=== PATIENT | female | born 1990 | race Caucasian/White ===

== ENCOUNTER 2016-07-20 07:38 | Day surgery (SDC) | payer MEDICAID ==
[2016-07-20] VITALS (24 sets, daily range): BP systolic 89–117; BP diastolic 54–63; PULSE 82–104; RESP 13–20; Ht 157.5 cm; Wt 52.3 kg
[~2016-07-20] VITALS: Ht 157.5 cm; Wt 52.3 kg
[2016-07-20] MEDS ORDERED: LIDOCAINE 2%/EPI 30 ML INJ ONE (08:56)
[2016-07-20] MEDS ORDERED: HEPARIN 1000 UNITS/ML 10 ML INJ ONE (08:56)
[2016-07-20] MEDS ORDERED: SOD CHLORIDE 0.9% 500 ML ONE (08:56)
[2016-07-20] MEDS ORDERED: MIDAZOLAM 1 MG/ML 2 ML INJ ONE ×2 (09:01→10:18)
[2016-07-20] MEDS ORDERED: CEFAZOLIN 1 GM/50 ML (PMX) 50 ML IVPB ONE (09:01)
[2016-07-20] MEDS ORDERED: FENTAnyl 50 MCG/ML VIAL ONE ×2 (09:02→10:18)
[2016-07-20] MEDS ORDERED: SOD CHLORIDE 0.9% 1,000 ML IV SCH (09:30)
[2016-07-20] MEDS ORDERED: CEFAZOLIN 1 GM/50 ML (PMX) 50 ML IVPB SCH (10:30)
[2016-07-20] MEDS ORDERED: POLYMYXIN/BACITRACIN 1L IRRIG IRR SCH (10:30)
--- NOTE | 2016-07-20 13:34 | RADRPT ---
PROCEDURE: 1. Port-A-Cath insertion. 2. Ultrasound guidance for venous access. 3. Fluoroscopic guidance. CLINICAL INDICATION: Right breast cancer TECHNIQUE: After informed written consent, the left chest was prepped and draped in standard steri le fashion. 1% lidocaine was used for local anesthesia. Initially ultrasound was performed to dete rmine patency of the venous system.. Under ultrasound guidance, the left internal jugular vein was accessed with a micropuncture needle. The tract was serially dilated, and a 8-English vascular sheat h was left in place. Attention was now turned to the anterior chest wall. A 3 cm incision was made with a #15 blade. Blunt dissection was used to create a subcutaneous pocket. Pocket was irrigated with antibiotic wash solution. Next, a tunnel was created from the pocket to the venotomy site. T hrough this, the catheter was advanced, and through the peel-away sheath under fluoroscopic guidance until the distal tip was confirmed with the right atrial SVC junction. The proximal aspect the cat heter was secured to the port. Port was secured into the pocket with two 4-0 Vicryl sutures. The deep layer of the pocket was closed with two 4-0 Vicryl sutures. The incision was closed with a ru nning 4-0 Monocryl suture. The port was flushed with heparinized saline. The patient tolerated the procedure well. There were no complications. COMPARISON: None FINDINGS: 1. Initial ultrasound demonstrates patent left internal jugular vein. 2. Successful placement of left chest single lumen 8-English Port-A-Cath. The distal tip terminates at the right atrial SVC junction. The port aspirates and flushes freely. 3. There is no evidence of pneumothorax on the final chest x-ray IMPRESSION: Successful placement of chest wall Port-A-Cath as described RPTAT: HH .Nikolay Hawk MD, Date Time Electronically viewed and signed by .Nikolay Hawk MD, MD on 07/20/2016 13:34 .W/
--- NOTE | 2016-07-22 20:56 | RADRPT ---
PROCEDURE: Ultrasound guidance for venous access CLINICAL INDICATION: GUIDANCE FOR PORTACATH PLACEMENT TECHNIQUE: Axial avila scale images were obtained of the left internal jugular vein. The procedure was performed by Nikolay Hawk MD. COMPARISON: None FINDINGS: The left internal jugular vein is patent and normally compressible. IMPRESSION: Successful ultrasound guided access of left internal jugular vein for Port-A-Cath placement. The pro cedure was performed by Nikolay Hawk MD. RPTAT: QQ .Kilo Sagastume MD, MD Date Time Electronically viewed and signed by .Kilo Sagastume MD, on 07/22/2016 20:55 .R/
== END 2016-07-20 13:18 | disposition home or self-care (01) ==
LOC: SDS 07:38
PROVIDERS: ATTEND Internal Medicine Hematology & Oncology
DX: C50.911 Malignant neoplasm of unspecified site of right female breast (principal)
CPT/HCPCS: 36561; 76942; C1788; J0690; J1644; J2250; J3010; J7040; Z7610

== ENCOUNTER 2016-07-27 20:06 | Emergency (ER) | payer MEDICAID ==
[~2016-07-27] VITALS: Ht 162.6 cm; Wt 51.8 kg
[2016-07-27 20:08] VITALS: Ht 162.6 cm; Wt 51.8 kg
[2016-07-27] MEDS ORDERED: SOD CHLORIDE 0.9% 2,000 ML IV STA (21:01)
[2016-07-27 21:26] LABS: ADD UMIC YES; URINE BILIRUBIN (Dip) NEGATIVE (NEGATIVE); URINE BLOOD (Dip) TRACE (NEGATIVE); URINE COLOR LT. YELLOW (YELLOW); URINE GLUCOSE (Dip) NEGATIVE (NEGATIVE); URINE KETONES (Dip) NEGATIVE (NEGATIVE); URINE LEUKOCYTE ESTERASE (Dip) NEGATIVE (NEGATIVE); URINE NITRITE (Dip) NEGATIVE (NEGATIVE); URINE TOTAL PROTEIN (Dip) TRACE (NEGATIVE); URINE UROBILINOGEN (Dip) 0.2 E.U./dL (0.1-1.0)
[2016-07-27 21:35] LABS: ADD SCAN DIFF NO
[2016-07-27 21:41] LABS: ABNORMAL IP MESSAGE 1; HEMOGLOBIN 14.1 g/dl (12.0-16.0); MEAN CORPUSCULAR HGB CONC 35.3 g/dl (32.0-37.0); MEAN CORPUSCULAR VOLUME 87.9 fl (82.0-101.0); MEAN PLATELET VOLUME 10.6 fl (7.4-10.4); PLATELET COUNT 161 10^3/UL (140-415); RED BLOOD COUNT 4.55 10^6/ul (4.20-5.40); WHITE BLOOD COUNT 7.4 10^3/ul (4.8-10.8)
[2016-07-27 21:44] LABS: SQUAMOUS EPITHELIAL CELL,UR FEW; URINE RBCS 0-2 /HPF (0)
[2016-07-27 22:01] LABS: ALBUMIN 4.4 g/dl (3.3-4.9); ALBUMIN/GLOBULIN RATIO 1.69; BILIRUBIN,INDIRECT 0.5 mg/dl (0-1.1); BILIRUBIN,TOTAL 0.5 mg/dl (0.2-1.3); CALCIUM 8.4 mg/dl (8.4-10.2); CREATININE 0.57 mg/dl (0.44-1.00); POTASSIUM 3.4 mmol/L (3.5-5.1); URIC ACID 3.3 mg/dl (3.1-7.9)
[2016-07-27] MEDS ORDERED: POTASSIUM CHLORIDE (SR) 20 MEQ TAB PO STA (22:11)
[2016-07-27 22:47] VITALS: BP 101/63; PULSE 82; RESP 16; TEMP 97.6
--- NOTE | 2016-07-27 22:57 | ERD ---
ER Documentation Chief Complaint Date/Time DATE: 07/27/16 TIME: 20:50 Chief Complaint weakness , diarrhea , not eating good after chemo 6 days ago, CA breast HPI 26-year-old female with recently diagnosed right invasive, intraductal breast CA status post first round of chemotherapy 07/21/2016 presents to the ED complaining of a 3 day history of worsening, generalized weakness, nausea and nonbloody, nonmucoid diarrhea. There was no relief from Imodium and her doctor prescribed Lamictal and she has had no further diarrhea since this afternoon. Generalized weakness but no shortness of breath, chest pain or abdominal pain. No dysuria, polyuria or hematuria. No shortness of breath or cough. Denies leg pain or swelling. No fevers or chills. ROS All systems reviewed and are negative except as per history of present illness. Medications Home Meds No Active Prescriptions or Reported Meds Allergies Allergies: Coded Allergies: No Known Allergy (Unverified , 07/20/16) PMhx/Soc Reviewed in chart. As per HPI. History of Surgery: Yes (APENDECTOMY 2010) Anesthesia Reaction: No Hx Neurological Disorder: No Hx Respiratory Disorders: No Hx Cardiac Disorders: No Hx Psychiatric Problems: No Hx Miscellaneous Medical Probl: Yes (BREAST CA / PORTACATH PLACEMENT) Hx Alcohol Use: No Hx Substance Use: No Hx Tobacco Use: No Smoking Status: Never smoker Physical Exam Vitals Vital Signs Date Time Temp Pulse Resp B/P Pulse Ox O2 Delivery O2 Flow Rate FiO2 07/27/16 22:47 97.6 82 16 101/63 100 Room Air 07/27/16 20:49 96 16 110/73 100 Nasal Cannula 2.0 07/27/16 20:08 98.8 62 20 102/56 98 Physical Exam Const: Alert, ill-appearing, pale Head: Atraumatic Eyes: Normal Conjunctiva ENT: Normal External Ears, Nose and Mouth. Neck: Full range of motion. Nontender. Resp: Clear to auscultation bilaterally Cardio: Regular rate and rhythm, no murmurs. Abd: Soft, non tender, non distended. Normal bowel sounds Skin: No petechiae or rashes. Port-A-Cath right upper chest wall nontender without erythema or induration. Back: No midline or flank tenderness Ext: No cyanosis, or edema Neur: Awake and alert Psych: Normal Mood and Affect Result Diagram: 07/27/16211107/27/162111 Results 24 hrs Laboratory Tests Test 07/27/16 21:00 07/27/16 21:12 Urine Color LT. YELLOW Urine Clarity CLEAR Urine pH 5.5 Urine Specific [place] 1.025 Urine Ketones NEGATIVE Urine Nitrite NEGATIVE Urine Bilirubin NEGATIVE Urine Urobilinogen 0.2 E.U./dL Urine Leukocyte Esterase NEGATIVE Urine Microscopic RBC 0-2/HPF Urine Microscopic WBC 0-2/HPF Urine Squamous Epithelial Cells FEW Urine Hemoglobin TRACE Urine Glucose NEGATIVE% Urine Total Protein TRACE White Blood Count 7.410^3/ul Red Blood Count 4.5510^6/ul Hemoglobin 14.1g/dl Hematocrit 40.0% Mean Corpuscular Volume 87.9fl Mean Corpuscular Hemoglobin 31.0pg Mean Corpuscular Hemoglobin Concent 35.3g/dl Red Cell Distribution Width 11.0% Platelet Count 46263^3/UL Mean Platelet Volume 10.6fl Neutrophils % % Eosinophils % % Neutrophils # 10^3/ul Eosinophils # 10^3/ul Sodium Level 136mmol/L Potassium Level 3.4mmol/L Chloride Level 105mmol/L Carbon Dioxide Level 25mmol/L Anion Gap 9 Blood Urea Nitrogen 13mg/dl Creatinine 0.57mg/dl Glucose Level 92mg/dl Uric Acid 3.3mg/dl Calcium Level 8.4mg/dl Total Bilirubin 0.5mg/dl Direct Bilirubin 0.00mg/dl Indirect Bilirubin 0.5mg/dl Aspartate Amino Transf (AST/SGOT) 26IU/L Alanine Aminotransferase (ALT/SGPT) 56IU/L Alkaline Phosphatase 79IU/L Total Protein 7.0g/dl Albumin 4.4g/dl Globulin 2.60g/dl Albumin/Globulin Ratio 1.69 Current Medications Medications (Trade) Dose Ordered Sig/Lucia Route PRN Reason Start Time Stop Time Status Last Admin Dose Admin Sodium Chloride (NS) 2,000 ml @ 1,000 mls/hr Q2H STAT IV 07/27/16 21:01 07/27/16 23:00 07/27/16 21:16 Potassium Chloride (Klor-Con 20) 20 meq ONCE STAT PO 07/27/16 22:11 07/27/16 22:13 DC 07/27/16 22:17 Procedures/MDM DOCUMENTS REVIEWED: ED nurse, prior ED, prior records ED COURSE: Normal saline 2 L IV MEDICAL DECISION MAKIN-year-old female with recently diagnosed right invasive, intraductal breast CA status post first round of chemotherapy 2016 presents to the ED complaining of a 3 day history of worsening, generalized weakness, nausea and nonbloody, non-mucoid diarrhea. No anemia or leukopenia. No acute electrolyte abnormalities. Afebrile. Mild dehydration and symptoms improved with IV hydration. No further diarrhea and tolerating p.o.'s. Stable for discharge precautionary instructions and outpatient follow- up as counseled. Counseled patient and found regarding diagnostic workup, diagnosis and need for followup. Understands to return to ED if symptoms recur, worsen or any other concerns. Departure Diagnosis: Primary Impression: Acute weakness Additional Impressions: Breast cancer Breast location: unspecified site of breast Patient sex: female Laterality : right Qualified Code: C50.911 - Malignant neoplasm of right female breast, unspecified site of breast Dehydration Condition: Stable NAHUN MADRIGAL MD July 27, 2016 22:57
[2016-07-28 00:30] LABS: EOSINOPHILS # 0.1 10^3/ul (0.0-0.5); LYMPHOCYTES # 1.2 10^3/ul (0.8-2.9); MONOCYTE # 1.4 10^3/ul (0.3-0.9); NEUTROPHIL # 3.7 10^3/ul (1.6-7.5)
[2016-07-28] MEDS ORDERED: IBUP200C PO (03:42)
[2016-07-28] MEDS ORDERED: FOLI-50 PO (03:42)
[2016-07-28] MEDS ORDERED: FAMO20TA18 PO (03:42)
[2016-07-28] MEDS ORDERED: CHOL20003 PO (03:42)
[2016-07-28] MEDS ORDERED: LORA10CA PO (03:42)
[2016-07-28] MEDS ORDERED: ONDA8TAB83 PO (03:43)
== END 2016-07-27 23:23 | disposition home or self-care (01) ==
LOC: E/R 20:06
DX: R53.1 Weakness (principal); C50.911 Malignant neoplasm of unspecified site of right female breast; E86.0 Dehydration; R40.2142 Coma scale, eyes open, spontaneous, at arrival to emergency department; R40.2252 Coma scale, best verbal response, oriented, at arrival to emergency department; R40.2362 Coma scale, best motor response, obeys commands, at arrival to emergency department
CPT/HCPCS: 36415; 80053; 81001; 84560; 85025; 96360; 96361; J7030; Z7502; Z7610

== ENCOUNTER 2016-09-08 21:42 | Emergency (ER) | payer SELFPAY ==
[~2016-09-08] VITALS: Ht 162.6 cm; Wt 54.4 kg
[~2016-09-08 21:42] MED LIST: CHOL200073 PO; FAMO20TA18 PO; FOLI-50 PO; IBUP200C PO; LORA10CA PO; ONDA8TAB83 PO
[2016-09-08 21:44] VITALS: Ht 162.6 cm; Wt 54.4 kg
== END 2016-09-09 00:36 | disposition left against medical advice (07) ==
LOC: E/R 21:42
DX: Z53.21 Procedure and treatment not carried out due to patient leaving prior to being seen by health care provider (principal)

== ENCOUNTER 2016-10-02 23:00 | Emergency (ER) | payer MEDICAID ==
[~2016-10-02] VITALS: Ht 157.5 cm; Wt 49.0 kg
[2016-10-02 23:09] VITALS: Ht 157.5 cm; Wt 49.0 kg
[2016-10-02] MEDS ORDERED: ONDANSETRON 4 MG INJ IV STA (23:18)
[2016-10-02] MEDS ORDERED: SOD CHLORIDE 0.9% 1,000 ML IV STA (23:18)
[2016-10-02] MEDS ORDERED: morphine 4 MG/ML VIAL IV STA (23:18)
[2016-10-02 23:39] LABS: URINE BLOOD (Dip) POC Negative (NEGATIVE)
[2016-10-02 23:54] LABS: BASOPHILS % 0.3 % (0.0-2.0); HEMATOCRIT 31.3 % (37.0-47.0); HEMOGLOBIN 10.8 g/dl (12.0-16.0); LYMPHOCYTES # 2.7 10^3/ul (0.8-2.9); LYMPHOCYTES % 39.3 % (15.0-51.0); MEAN CORPUSCULAR HEMOGLOBIN 33.5 pg (29.0-33.0); MEAN CORPUSCULAR HGB CONC 34.5 g/dl (32.0-37.0); MEAN CORPUSCULAR VOLUME 97.2 fl (82.0-101.0); MEAN PLATELET VOLUME 9.6 fl (7.4-10.4); MONOCYTE # 0.5 10^3/ul (0.3-0.9); MONOCYTES % 7.5 % (0.0-11.0); NEUTROPHIL # 3.6 10^3/ul (1.6-7.5); NEUTROPHILS % 52.5 % (39.0-77.0); PLATELET COUNT 178 10^3/UL (140-415); RED BLOOD COUNT 3.22 10^6/ul (4.20-5.40); RED CELL DISTRIBUTION WIDTH 15.4 % (11.5-14.5); WHITE BLOOD COUNT 6.9 10^3/ul (4.8-10.8)
[2016-10-03 00:14] LABS: ALBUMIN 4.7 g/dl (3.3-4.9); ALBUMIN/GLOBULIN RATIO 1.42; BILIRUBIN,INDIRECT 0.2 mg/dl (0-1.1); BILIRUBIN,TOTAL 0.2 mg/dl (0.2-1.3); CALCIUM 9.9 mg/dl (8.4-10.2); CREATININE 0.6 mg/dl (0.44-1.00); POTASSIUM 3.4 mmol/L (3.5-5.1)
[2016-10-03 00:40] LABS: POSITIVE DIFF @See below
[2016-10-03 00:50] LABS: ADD UMIC YES; UR ASCORBIC ACID NEGATIVE (NEGATIVE); UR BILIRUBIN (Dip) NEGATIVE (NEGATIVE); UR BLOOD (Dip) NEGATIVE (NEGATIVE); UR CLARITY SLIGHTLY CLOUDY (CLEAR); UR COLOR YELLOW (YELLOW); UR GLUCOSE (Dip) NEGATIVE (NEGATIVE); UR KETONES (Dip) NEGATIVE (NEGATIVE); UR LEUKOCYTE ESTERASE (Dip) 2+ Leu/ul (NEGATIVE); UR MUCUS MANY /HPF (NONE SEEN); UR NITRITE (Dip) NEGATIVE (NEGATIVE); UR RBC 3 /HPF (0-5); UR SQUAMOUS EPITHELIAL CELL FEW /HPF (FEW); UR TOTAL PROTEIN (Dip) NEGATIVE (NEGATIVE); UR UROBILINOGEN (Dip) NEGATIVE (NEGATIVE)
[2016-10-03] MEDS ORDERED: CEFEPIME 1GM/50 ML (PMX) 50 ML IVPB ONE (01:00)
[2016-10-03 02:17] VITALS: BP 90/58; PULSE 73; RESP 17
--- NOTE | 2016-10-03 02:17 | ERD ---
ER Documentation Chief Complaint Date/Time DATE: 10/03/16 TIME: 02:13 Chief Complaint abd pain, n/v since last night. Hx: breast CA. last chemo 09/22/16 HPI 26-year-old female presents emergency room with mid abdominal pain as well as nausea. She vomited once yesterday as well. She had chemotherapy a couple of weeks ago. Also has rectal hemorrhoids and does have some constipation bouts. Thinks she might be constipated now as well. Has had no fevers or chills. Has not had any intra-abdominal problems other than constipation and diarrhea at times with chemo. ROS All systems reviewed and are negative except as per history of present illness. Medications Home Meds Reported Medications Ondansetron Hcl* (Ondansetron Hcl*) 8 Mg Tablet, 8 MG PO Q6H Y for NAUSEA AND OR VOMITING, TAB 07/28/16 Cholecalciferol (Vitamin D3) (VITAMIN D-3) 2,000 Unit Capsule, 2000 UNIT PO, CAP 07/28/16 Folic Acid/Multivits-Min/Lut (MULTI-VITAMIN GUMMIES) 1 Each Tab.chew, 1 EACH PO , TAB.CHEW 07/28/16 Famotidine* (Famotidine*) 20 Mg Tablet, 20 MG PO DAILY, #30 TAB 07/28/16 Loratadine* (Claritin*) 10 Mg Capsule, 10 MG PO DAILY, CAP 07/28/16 Ibuprofen* (Ibuprofen*) 200 Mg Capsule, 400 MG PO Q6, CAP 07/28/16 Allergies Allergies: Coded Allergies: No Known Drug Allergies (Verified Allergy, Unknown, 10/03/16) Uncoded Allergies: TAPE (Adverse Reaction, Severe, rash, 10/02/16) PMhx/Soc History of Surgery: Yes (APENDECTOMY 2011, [facility]) Anesthesia Reaction: No Hx Neurological Disorder: No Hx Respiratory Disorders: No Hx Cardiac Disorders: No Hx Psychiatric Problems: No Hx Miscellaneous Medical Probl: Yes (BREAST CA, on chemo) Hx Alcohol Use: No Hx Substance Use: No Hx Tobacco Use: No Smoking Status: Never smoker Physical Exam Vitals Vital Signs Date Time Temp Pulse Resp B/P Pulse Ox O2 Delivery O2 Flow Rate FiO2 10/02/16 23:09 97.2 81 18 109/78 100 Physical Exam Const: [] Mild to moderate distress Head: Atraumatic Eyes: Normal Conjunctiva ENT: Normal External Ears, Nose and Mouth. Neck: Full range of motion..~ No meningismus. Resp: Clear to auscultation bilaterally Cardio: Regular rate and rhythm, no murmurs Abd: Soft, mild mid abdominal tenderness without guarding or rebound, non distended. Normal bowel sounds Skin: No petechiae or rashes Ext: No cyanosis, or edema Neur: Awake and alert and oriented 3, no focal deficits Psych: Normal Mood and Affect Result Diagram: 10/02/16 2333 10/02/16 2333 Results 24 hrs Laboratory Tests Test 10/02/16 23:33 10/02/16 23:44 White Blood Count 6.910^3/ul Red Blood Count 3.2210^6/ul Hemoglobin 10.8g/dl Hematocrit 31.3% Mean Corpuscular Volume 97.2fl Mean Corpuscular Hemoglobin 33.5pg Mean Corpuscular Hemoglobin Concent 34.5g/dl Red Cell Distribution Width 15.4% Platelet Count 90904^3/UL Mean Platelet Volume 9.6fl Neutrophils % 52.5% Lymphocytes % 39.3% Monocytes % 7.5% Eosinophils % 0.0% Basophils % 0.3% Nucleated Red Blood Cells % 0.0/100WBC Neutrophils # 3.610^3/ul Lymphocytes # 2.710^3/ul Monocytes # 0.510^3/ul Eosinophils # 0.010^3/ul Basophils # 0.010^3/ul Nucleated Red Blood Cells # 0.010^3/ul Urine Color YELLOW Urine Clarity SLIGHTLY CLOUDY Urine pH 7.0 Urine Specific [place] 1.020 Urine Ketones NEGATIVEmg/dL Urine Nitrite NEGATIVEmg/dL Urine Bilirubin NEGATIVEmg/dL Urine Urobilinogen NEGATIVEmg/dL Urine Leukocyte Esterase 2+Fidelina/ul Urine Microscopic RBC 3/HPF Urine Microscopic WBC 26/HPF Urine Squamous Epithelial Cells FEW/HPF Urine Mucus MANY/HPF Urine Hemoglobin NEGATIVEmg/dL Urine Glucose NEGATIVEmg/dL Urine Total Protein NEGATIVEmg/dl Sodium Level 147mmol/L Potassium Level 3.4mmol/L Chloride Level 98mmol/L Carbon Dioxide Level 30mmol/L Anion Gap 22 Blood Urea Nitrogen 11mg/dl Creatinine 0.60mg/dl Glucose Level 83mg/dl Calcium Level 9.9mg/dl Total Bilirubin 0.2mg/dl Direct Bilirubin 0.00mg/dl Indirect Bilirubin 0.2mg/dl Aspartate Amino Transf (AST/SGOT) 38IU/L Alanine Aminotransferase (ALT/SGPT) 81IU/L Alkaline Phosphatase 99IU/L Total Protein 8.0g/dl Albumin 4.7g/dl Globulin 3.30g/dl Albumin/Globulin Ratio 1.42 Lipase 293U/L Bedside Urine pH (LAB) 7.5 Bedside Urine Protein (LAB) Trace Bedside Urine Glucose (UA) Negative Bedside Urine Ketones (LAB) Negative Bedside Urine Blood Negative Bedside Urine Nitrite (LAB) Negative Bedside Urine Leukocyte Esterase (L 1+ Current Medications Medications (Trade) Dose Ordered Sig/Lucia Route PRN Reason Start Time Stop Time Status Last Admin Dose Admin Sodium Chloride (NS) 1,000 ml @ 1,000 mls/hr Q1H STAT IV 10/02/16 23:18 10/03/16 00:17 DC 10/02/16 23:43 Morphine Sulfate (morphine) 4 mg ONCE STAT IV 10/02/16 23:18 10/02/16 23:20 DC 10/02/16 23:42 Ondansetron HCl 4 mg 4 mg ONCE STAT IV 10/02/16 23:18 10/02/16 23:20 DC 10/02/16 23:42 Cefepime HCl (Maxipime 1gm/50 ml (Pmx)) 50 ml @ 100 mls/hr ONCE ONCE IVPB 10/03/16 01:00 10/03/16 01:33 DC 10/03/16 01:45 Procedures/MDM Constipation as well as urinary tract infection contributing to abdominal pain and nausea. Patient was given 4 mg of morphine which completely resolved her abdominal pain. Is also given Zofran which resolved her nausea. Was hydrated with a liter of normal saline as well as given cefepime for urinary tract infection. I am going to discharge her with naproxen as well as a bowel regimen and ciprofloxacin for UTI. Abdominal x-ray two-view interpretation by myself: Moderate constipation, no free air, no signs of obstruction, no fractures Departure Diagnosis: Primary Impression: Acute abdominal pain Additional Impressions: Constipation Vomiting Urinary tract infection Anemia Condition: Stable RAÚL DELANEY Oct 03, 2016 02:17
[2016-10-03] MEDS ORDERED: ONDA4TAB11 PO (02:18)
[2016-10-03] MEDS ORDERED: CIPR500T4 PO (02:18)
[2016-10-03] MEDS ORDERED: MAGN296S40 PO (02:18)
[2016-10-03] MEDS ORDERED: POLY17PO6 PO (02:18)
[2016-10-03] MEDS ORDERED: NAPR-688 PO (02:18)
--- NOTE | 2016-10-03 02:21 | RADRPT ---
PROCEDURE: XR Abdomen. CLINICAL INDICATION: Abdominal pain TECHNIQUE: Supine and upright AP views of the abdomen. COMPARISON: None. FINDINGS: There are no dilated loops of small bowel to suggest a bowel obstruction. A moderate amount of gas and stool are seen within nondilated large bowel. There is no pneumoperitoneum. No abnormal calcifi cations are identified. There is a left chest wall port in place. IMPRESSION: 1. Nonobstructive bowel gas pattern. 2. Moderate amount of gas and stool within nondilated colon. 3. No pneumoperitoneum. RPTAT: HTAR .Ziyad Hollins MD, MD Date Time Electronically viewed and signed by .Ziyad Hollins MD, on 10/03/2016 02:21 .R/
== END 2016-10-03 02:30 | disposition home or self-care (01) ==
LOC: E/R 23:00
DX: R10.9 Unspecified abdominal pain (principal); K59.00 Constipation, unspecified; R11.10 Vomiting, unspecified; N39.0 Urinary tract infection, site not specified; D64.9 Anemia, unspecified; Z85.3 Personal history of malignant neoplasm of breast
CPT/HCPCS: 36415; 74010; 80053; 81001; 81003; 83690; 85025; 96361; 96365; 96375; J0692; J2270; J2405; J7030; Z7502

== ENCOUNTER 2016-10-26 00:06 | Emergency (ER) | payer SELFPAY ==
[~2016-10-26] VITALS: Ht 160 cm; Wt 55.0 kg
[~2016-10-26 00:06] MED LIST changes: +CIPR500T4 PO; +MAGN296S40 PO; +NAPR-688 PO; +ONDA4TAB11 PO; +POLY17PO6 PO
[2016-10-26 00:11] VITALS: Ht 160 cm; Wt 55.0 kg
== END 2016-10-26 05:24 | disposition left against medical advice (07) ==
LOC: E/R 00:06
DX: Z53.21 Procedure and treatment not carried out due to patient leaving prior to being seen by health care provider (principal)

== ENCOUNTER 2016-11-17 07:52 | Day surgery (SDC) | payer MEDICAID ==
[~2016-11-17] VITALS: Ht 157.5 cm; Wt 49.0 kg
[2016-11-17] VITALS (13 sets, daily range): BP systolic 94–111; BP diastolic 60–76; PULSE 75–112; RESP 13–20; Ht 157.5 cm; Wt 49.0 kg
[~2016-11-17 07:52] MED LIST changes: +ATROPINE 1 MG/10 ML SYRINGE IV PRN; +CEFAZOLIN 1 GM/50 ML (PMX) 50 ML IVPB SCH; +DIPHENHYDRAMINE 50 MG INJ IV PRN; +EPHEDrine SULFATE 50 MG/5 ML SYG IV PRN; +FENTAnyl 50 MCG/ML VIAL IV PRN; +HYDROmorphONE (0.2 MG/ML) 10ML SYG IV PRN; +LABETALOL HCL 20MG INJ IV PRN; +MEPERIDINE 25 MG INJ IV PRN; +MIDAZOLAM 1 MG/ML 2 ML INJ IV PRN; +ONDANSETRON 4 MG INJ IV PRN; +OXYCODONE/ACETAMINOPHEN (5/325) TAB PO PRN; +SOD CHLORIDE 0.9% 1,000 ML IV SCH; +hydrALAzine 20 MG INJ IV PRN; +morphine (1 MG/ML) 10ML SYRINGE IV PRN
[2016-11-17 10:53] LABS: BASOPHILS % 0.7 % (0.0-2.0); EOSINOPHILS # 0.6 10^3/ul (0.0-0.5); EOSINOPHILS % 9.9 % (0.0-7.0); HEMOGLOBIN 12.9 g/dl (12.0-16.0); LYMPHOCYTES # 2.2 10^3/ul (0.8-2.9); LYMPHOCYTES % 38.8 % (15.0-51.0); MEAN CORPUSCULAR HEMOGLOBIN 33.8 pg (29.0-33.0); MEAN CORPUSCULAR HGB CONC 33.1 g/dl (32.0-37.0); MEAN CORPUSCULAR VOLUME 102.1 fl (82.0-101.0); MEAN PLATELET VOLUME 9.5 fl (7.4-10.4); MONOCYTE # 0.4 10^3/ul (0.3-0.9); MONOCYTES % 7.2 % (0.0-11.0); NEUTROPHIL # 2.4 10^3/ul (1.6-7.5); NEUTROPHILS % 43.2 % (39.0-77.0); PLATELET COUNT 304 10^3/UL (140-415); RED BLOOD COUNT 3.82 10^6/ul (4.20-5.40); RED CELL DISTRIBUTION WIDTH 14.6 % (11.5-14.5); WHITE BLOOD COUNT 5.6 10^3/ul (4.8-10.8)
[2016-11-17 11:15] LABS: PROTIME 13.2 Sec (12.2-14.2)
[2016-11-17 11:18] LABS: ALBUMIN 4.6 g/dl (3.3-4.9); ALBUMIN/GLOBULIN RATIO 1.43; BILIRUBIN,INDIRECT 0.4 mg/dl (0-1.1); BILIRUBIN,TOTAL 0.4 mg/dl (0.2-1.3); TOTAL PROTEIN 7.8 g/dl (6.1-8.1)
[2016-11-17 11:20] LABS: CREATININE 0.57 mg/dl (0.44-1.00); POTASSIUM 3.7 mmol/L (3.5-5.1)
[2016-11-17 11:22] LABS: PARTIAL THROMBOPLASTIN TIME 35.7 Sec (25.0-35.0)
[2016-11-17] MEDS ORDERED: MEPERIDINE 50 MG INJ ONE (11:30)
[2016-11-17] MEDS ORDERED: MEPERIDINE 50 MG INJ IV ONE (11:30)
[2016-11-17] MEDS ORDERED: SUGAMMADEX SODIUM 200 MG/2 ML VIAL IV ONE (13:30)
[2016-11-17] MEDS ORDERED: GLYCOPYRROLATE 0.4 MG INJ ONE (13:30)
[2016-11-17] MEDS ORDERED: ROCURONIUM 50 MG INJ ONE (13:30)
[2016-11-17] MEDS ORDERED: LIDOCAINE 2% (SDV) 5 ML INJ ONE (13:30)
[2016-11-17] MEDS ORDERED: FENTAnyl 50 MCG/ML VIAL ONE (13:30)
[2016-11-17] MEDS ORDERED: NEOSTIGMINE 3 MG/3 ML SYRINGE ONE (13:30)
[2016-11-17] MEDS ORDERED: MIDAZOLAM 1 MG/ML 2 ML INJ ONE (13:30)
[2016-11-17] MEDS ORDERED: PROPOFOL 200 MG INJ ONE (13:30)
[2016-11-17] MEDS ORDERED: ONDANSETRON 4 MG INJ ONE (13:31)
[2016-11-17] MEDS ORDERED: DEXAMETHASONE 4 MG/ML 1 ML INJ ONE (13:31)
[2016-11-17] MEDS ORDERED: ISOSULFAN BLUE 1% 5 ML INJ SC ONE (13:56)
--- NOTE | 2016-11-17 15:18 | SIPON ---
Date/Time of Note Date/Time of Note DATE: 11/17/16 TIME: 15:15 Operative Report Preoperative Diagnosis Locally advanced right breast cancer Postoperative Diagnosis Same Operation/Procedure Performed Needle directed right partial mastectomy and axillary dissection utilizing sentinel lymph node technique Surgeon see signature line pharmacy assistant Dr. Pradeep Hendrix Anesthesia: general Estimated blood loss: 10 - 50 ml's Transfusion Required none Specimen Right breast specimen and sentinel lymph node with additional axillary nodes Grafts/Implants none Complications none MARIA D NINO MD Nov 17, 2016 15:18
--- NOTE | 2016-11-17 16:26 | OPR ---
DATE OF OPERATION: 11/17/2016 PREOPERATIVE DIAGNOSIS: Invasive cancer of the right breast. POSTOPERATIVE DIAGNOSIS: Invasive cancer of the right breast. OPERATION PERFORMED: Right needle-directed partial mastectomy with axillary dissection utilizing sentinel lymph node technique. ANESTHESIA: General. ANESTHESIOLOGIST: Alan Ron MD SURGEON: Ganesh Krugeer MD HOSPITALITY HOST: Honorio Hendrix MD INDICATIONS FOR PROCEDURE: Patient is a very unfortunate female who at age 25 was diagnosed with invasive cancer of her right breast and had biopsy-proven axillary metastasis. Her tumor was found to be HER2 positive, thus she was treated with neoadjuvant chemotherapy with radiographic sign of very good response. She was then counseled on possible breast conservation surgery with needle-directed partial mastectomy and axillary dissection utilizing sentinel lymph node technique. She consented and was scheduled for surgery. OPERATIVE PROCEDURE: On the morning of surgery, patient presented to [facility] where she underwent localization of the previously placed biopsy clip performed by attending [facility] radiologist, Dr. Wong Castaneda. Subsequently, she was brought to the operating theater, placed under general anesthesia. The right breast and axillary region were prepped and draped in the usual sterile fashion. Approximately 4 mL of 1 percent Lymphazurin blue dye was then injected ravinder-tumor and then a 3 cm incision was made in the right axillary hairline. Subcutaneous tissue was dissected with cautery down through the clavipectoral fascia. A dye stained lymphatic was identified leading to a sentinel node. The sentinel node was harvested due to the fact that she had known pretreatment axillary metastasis, additional lymph nodes were harvested as well at approximately 4 or 5 according to NCCN guidelines. Intraoperative analysis of the lymph nodes was negative for malignancy. Therefore, no further lymph nodes were removed. The wound was irrigated. Minimal bleeding was controlled with cautery. The skin was then reapproximated with a 4-0 Vicryl suture in subcuticular fashion. Attention was then directed to performing a partial mastectomy. The previously placed localization wire was in the upper outer quadrant of the breast. Curvilinear incision was made in this area and subcutaneous tissue was dissected with cautery. The skin edges were then elevated with skin hooks and wide circumferential dissection of the tissue associated with the wire then took place. Specimen was elevated, transected, oriented and sent for permanent pathologic analysis. The wound was irrigated. Minimal bleeding was controlled with cautery. The skin incision was then closed with a 4-0 Vicryl suture in subcuticular fashion. Dermabond was then applied to both incisions. The patient tolerated procedure well. The estimated blood loss was approximately 20 mL. There were no complications. The patient was transported in stable condition to the recovery room where a circumferential compression dressing was applied. Dictated By: Ganesh Krueger MD /kamala/bibi /Document#: [id number]
== END 2016-11-17 17:20 | disposition home or self-care (01) ==
LOC: SDS 07:52
PROVIDERS: ATTEND Surgery Surgical Oncology
DX: N60.31 Fibrosclerosis of right breast (principal); Z85.3 Personal history of malignant neoplasm of breast
CPT/HCPCS: 19301; 38500; 38792; 80053; 84703; 85025; 85610; 85730; 88307; J2175; J2250; J2405; J2710; J3010; Z7512; Z7610; J1100; Q9968